=== PATIENT | male | born 1935 | race Caucasian/White ===

== ENCOUNTER 2018-09-21 15:03 | Emergency (ER) | payer MEDICARE ==
--- NOTE | 2018-09-21 16:47 | ED Physician Documentation ---
PD HPI FOCAL NEURO - Stated complaint Stated Complaint: SOA/DISORIENTED - Chief complaint Chief Complaint: Neuro - History obtained from History obtained from: Patient - History of Present Illness Timing - onset: Other (Starting yesterday morning generalized weakness with difficulty ambulating. Feels like he needs support and can't walk straight. Assoc with cough productive. Mild dyspnea.) Review of Systems Ten Systems: 10 systems reviewed and negative Constitutional: denies: Fever, Chills Cardiac: denies: Chest pain / pressure, Palpitations Respiratory: reports: Dyspnea (chronic) GI: denies: Abdominal Pain, Nausea, Vomiting PD PAST MEDICAL HISTORY - Past Medical History Cardiovascular: Hypertension, High cholesterol, Coronary artery disease (stents) Endocrine/Autoimmune: Type 2 diabetes GI: GERD - Past Surgical History Past Surgical History: No - Present Medications Home Medications: Ambulatory Orders Medication Instructions Recorded Confirmed Allopurinol [Zyloprim] 300 mg PO DAILY 11/07/13 11/07/13 Atenolol [Tenormin] 50 mg PO DAILY 11/07/13 11/07/13 Clopidogrel [Plavix] 75 mg PO DAILY 11/07/13 11/07/13 Doxazosin Mesylate [Cardura] 8 mg PO DAILY 11/07/13 11/07/13 Finasteride [Proscar] 5 mg PO DAILY 11/07/13 11/07/13 Insulin NPH Human Isophane 24 units SQ QPM 11/07/13 11/07/13 [Humulin N] Isosorbide Mononitrate ER [Imdur] 30 mg PO DAILY 11/07/13 11/07/13 Pantoprazole Sodium [Protonix] 40 mg PO BID 11/07/13 11/07/13 Ranitidine HCl [Zantac] 150 mg PO BID 11/07/13 11/07/13 Simvastatin [Zocor] 80 mg PO QPM 11/07/13 11/07/13 glipiZIDE [Glucotrol] 15 mg PO 11/07/13 11/08/13 hydroCHLOROthiazide [Hydrodiuril] 25 mg PO DAILY 11/07/13 11/07/13 Albuterol Sulfate [Proair Hfa] 2 inh INH QID PRN 11/08/13 11/08/13 Aspirin Chewable [St Lino 81 mg PO DAILY 11/08/13 11/08/13 Aspirin] Ciprofloxacin HCl [Cipro] 500 mg PO BID #14 tablet 11/08/13 Lisinopril [Zestril] 60 mg PO DAILY 11/08/13 11/08/13 Mometasone 220 Mcg [Asmanex 220 2 inh INH QPM 11/08/13 11/08/13 Mcg] Azithromycin 1 tab PO DAILY #4 tablet 09/21/18 - Allergies Allergies/Adverse Reactions: Allergies Allergy/AdvReac Type Severity Reaction Status Date / Time Penicillins Allergy Rash Verified 09/21/18 15:09 - Social History Does the pt smoke?: No Does the pt drink ETOH?: No PD ED PE NORMAL - Vitals Vital signs reviewed: Yes - General General: Alert and oriented X 3, No acute distress - HEENT HEENT: PERRL, EOMI - Neck Neck: Supple, no meningeal sign, No bony TTP - Cardiac Cardiac: RRR, No murmur - Respiratory Respiratory: No respiratory distress, Other (LLL rhonchi) - Abdomen Abdomen: Soft, Non tender - Back Back: No CVA TTP, No spinal TTP - Derm Derm: Normal color, Warm and dry - Extremities Extremities: No edema, No calf tenderness / cord - Neuro Neuro: Alert and oriented X 3, No motor deficit, No sensory deficit, Other (NL FINGER/NOSE BILAT) Eye Opening: Spontaneous Motor: Obeys Commands Verbal: Oriented GCS Score: 15 - Psych Psych: Normal mood, Normal affect Results - Vitals Vitals: Vital Signs - 24 hr 09/21/18 15:07 Temperature 36.5 C Heart Rate 87 Respiratory 21 Rate Blood Pressure 139/78 H O2 Saturation 97 Oxygen O2 Source Room air - Labs Labs: Laboratory Tests 09/21/18 09/21/18 09/21/18 17:02 17:02 17:02 WBC 6.7 RBC 4.39 L Hgb 13.7 L Hct 41.2 L MCV 94.0 MCH 31.2 H MCHC 33.2 RDW 15.5 H Plt Count 158 MPV 8.6 Neut # (Auto) 4.6 Lymph # (Auto) 1.2 L [place] # (Auto) 0.7 Eos # (Auto) 0.1 Baso # (Auto) 0.1 Absolute Nucleated RBC 0.00 Nucleated RBC % 0.0 Sodium 139 Potassium 3.5 Chloride 104 Carbon Dioxide 22 Anion Gap 13.0 BUN 24 H Creatinine 1.1 Estimated GFR (MDRD) 64 L Glucose 168 H Calcium 8.9 Total Bilirubin 0.8 AST 28 ALT 33 Alkaline Phosphatase 53 Troponin I < 0.04 Total Protein 7.0 Albumin 3.9 Globulin 3.1 Albumin/Globulin Ratio 1.3 Lipase 39 - Rads (name of study) 2v chest Radiology: EMP read contemporaneously (Shay JOHN) PD MEDICAL DECISION MAKING - ED course ED course: 82-year-old gentleman who has been feeling increasingly weak for the last few days with pulmonary complaints and found to have a small right lower lobe pneumonia. Otherwise looks well on labs and is treated with Zithromax and IV fluids. Departure - Departure Disposition: 01 Home, Self Care Clinical Impression: Pneumonia Qualifiers: Pneumonia type: due to unspecified organism Laterality: right Lung location: lower lobe of lung Qualified Code(s): J18.1 - Lobar pneumonia, unspecified organism Condition: Good Record reviewed to determine appropriate education?: Yes Instructions: Pneumonia Dc Prescriptions: Azithromycin 1 tab PO DAILY #4 tablet Comments: Call your doctor to arrange a follow-up appointment, make the next available appointment. In the interim, return anytime if worse or if new symptoms develop.
[2018-09-21] MEDS ORDERED: SODIUM CHLORIDE 0.9% 1,000 ML IV ONE (16:54)
[2018-09-21 17:10] LABS: BASOPHILS # (AUTO) 0.1 10^3/uL (0.0-0.1); BASOPHILS % (AUTO) 1.2 %; EOSINOPHILS # (AUTO) 0.1 10^3/uL (0.0-0.7); EOSINOPHILS % (AUTO) 1.7 %; HGB - HEMOGLOBIN 13.7 g/dL (14.0-18.0); LYMPHOCYTES # (AUTO) 1.2 10^3/uL (1.5-3.5); LYMPHOCYTES % (AUTO) 17.7 %; MEAN CORPUSCULAR HEMOGLOBIN 31.2 pg (27.0-31.0); MEAN CORPUSCULAR HGB CONC 33.2 g/dL (32.0-36.0); MEAN PLATELET VOLUME 8.6 fL (7.4-11.4); MONOCYTES # (AUTO) 0.7 10^3/uL (0.0-1.0); MONOCYTES % (AUTO) 10.2 %; NEUTROPHILS # (AUTO) 4.6 10^3/uL (1.5-6.6); NEUTROPHILS % (AUTO) 69.2 %; PLT - PLATELET COUNT 158 10^3/uL (130-450); RED BLOOD COUNT 4.39 10^6/uL (4.70-6.10); RED CELL DISTRIBUTION WIDTH 15.5 % (12.0-15.0); WHITE BLOOD COUNT 6.7 x10^3/uL (4.8-10.8)
[2018-09-21 17:24] LABS: ALBUMIN 3.9 g/dL (3.2-5.5); ALBUMIN/GLOBULIN RATIO 1.3 (1.0-2.2); BILIRUBIN,TOTAL 0.8 mg/dL (0.2-1.0); CALCIUM 8.9 mg/dL (8.5-10.3); CREATININE 1.1 mg/dL (0.6-1.2)
--- NOTE | 2018-09-21 17:40 | XRAY Report ---
Reason: cough Procedure Date: 09/21/2018 Accession Number: [id number] / [id number] Procedure: XR - Chest 2 View X-Ray CPT Code: 25953 FULL RESULT: EXAM: CHEST RADIOGRAPHY EXAM DATE: 09/21/2018 05:15 PM. CLINICAL HISTORY: Cough. COMPARISON: None. TECHNIQUE: 2 views. FINDINGS: Lungs/Pleura: Streaky subtle opacities of the right lung base. There is no confluent lung consolidation. No pleural effusion or pneumothorax. Mediastinum: Heart and mediastinal contours are unremarkable. Other: None. IMPRESSION: Streaky right basilar opacities suspicious for acute airspace disease. RADIA
[2018-09-21] MEDS ORDERED: AZITHROMYCIN 250 MG TABLET PO STA (17:57)
[2018-09-21 18:14] VITALS: BP 137/77
== END 2018-09-21 18:31 | disposition home or self-care (01) ==
LOC: ED 15:03
DX: J18.1 Lobar pneumonia, unspecified organism (principal); I10 Essential (primary) hypertension; I25.10 Atherosclerotic heart disease of native coronary artery without angina pectoris; E11.9 Type 2 diabetes mellitus without complications; Z79.4 Long term (current) use of insulin; Z95.5 Presence of coronary angioplasty implant and graft
CPT/HCPCS: 36415; 71046; 80053; 83690; 84484; 85025; 99283; A9270

== ENCOUNTER 2020-05-12 13:21 | Emergency (ER) | payer MEDICARE ==
--- NOTE | 2020-05-12 13:46 | ED Physician Documentation ---
PD HPI MALE - Stated complaint Stated Complaint: LT ANKLE WOUND - History obtained from History obtained from: Patient - Additional information Additional information: This is a 85-year-old gentleman history of remote TURP who has a wound that he first noticed on his ankle on April 21. He was seen at [facility] 3 days ago. It does not sound like a culture was done but he was put on Keflex, he has been on day 3. He also had what he describes as an x-ray without evidence of osteomyelitis. Despite being on the Keflex the wound is getting worse and draining more. He also notes since yesterday he has had gross hematuria with occasional clots. There is no associated new back pain but he does have some chronic back pain. Review of Systems Ten Systems: 10 systems reviewed and negative Constitutional: denies: Fever, Chills GI: denies: Abdominal Pain, Nausea, Vomiting, Diarrhea : reports: Hematuria. denies: Dysuria PD PAST MEDICAL HISTORY - Past Medical History Cardiovascular: Hypertension, High cholesterol, Coronary artery disease Endocrine/Autoimmune: Type 2 diabetes GI: GERD - Past Surgical History Past Surgical History: No - Present Medications Home Medications: Ambulatory Orders Medication Instructions Recorded Confirmed Allopurinol [Zyloprim] 300 mg PO DAILY 11/07/13 11/07/13 Clopidogrel [Plavix] 75 mg PO DAILY 11/07/13 11/07/13 Doxazosin Mesylate [Cardura] 8 mg PO DAILY 11/07/13 11/07/13 Finasteride [Proscar] 5 mg PO DAILY 11/07/13 11/07/13 Insulin NPH Human Isophane 24 units SQ QPM 11/07/13 11/07/13 [Humulin N] Pantoprazole Sodium [Protonix] 40 mg PO BID 11/07/13 11/07/13 Simvastatin [Zocor] 80 mg PO QPM 11/07/13 11/07/13 glipiZIDE [Glucotrol] 15 mg PO 11/07/13 11/08/13 hydroCHLOROthiazide [Hydrodiuril] 25 mg PO DAILY 11/07/13 11/07/13 Aspirin Chewable [St Lino 81 mg PO DAILY 11/08/13 11/08/13 Aspirin] Lisinopril [Zestril] 60 mg PO DAILY 11/08/13 11/08/13 Empagliflozin [Jardiance] 25 mg PO 05/12/20 Famotidine [Acid-Pep] 05/12/20 05/12/20 Metoprolol Tartrate [Lopressor] 05/12/20 Oxybutynin [Ditropan] 05/12/20 05/12/20 - Allergies Allergies/Adverse Reactions: Allergies Allergy/AdvReac Type Severity Reaction Status Date / Time Penicillins Allergy Rash Verified 09/21/18 15:09 - Social History Does the pt smoke?: No Smoking Status: Never smoker Does the pt drink ETOH?: No PD ED PE NORMAL - Vitals Vital signs reviewed: Yes - General General: Alert and oriented X 3, No acute distress - HEENT HEENT: PERRL, EOMI - Neck Neck: Supple, no meningeal sign, No bony TTP - Cardiac Cardiac: RRR, No murmur - Respiratory Respiratory: No respiratory distress, Clear bilaterally - Abdomen Abdomen: Soft, Non tender - Back Back: No CVA TTP, No spinal TTP - Derm Derm: Normal color, Warm and dry - Extremities Extremities: Other (Is a deep ulcer on the medial surface of the left foot at the level of the first MTP that is foul-smelling with surrounding cellulitis.) - Neuro Neuro: Alert and oriented X 3, Normal speech Results - Vitals Vitals: Vital Signs - 24 hr 05/12/20 05/12/20 05/12/20 13:37 15:00 16:20 Temperature 36.6 C 36.6 C Heart Rate 67 70 57 L Respiratory 20 16 18 Rate Blood Pressure 129/75 118/58 L 109/62 O2 Saturation 99 99 99 05/12/20 17:05 Temperature Heart Rate 70 Respiratory 16 Rate Blood Pressure 114/66 O2 Saturation 100 Oxygen O2 Source Room air - Labs Labs: Microbiology 05/12/20 14:00 Wound Culture - Preliminary Toe - Left Big Laboratory Tests 05/12/20 05/12/20 05/12/20 14:07 14:07 14:07 WBC 9.2 RBC 4.40 L Hgb 14.0 Hct 42.0 MCV 95.5 H MCH 31.8 H MCHC 33.3 RDW 14.9 Plt Count 189 MPV 10.3 Neut # (Auto) 6.4 Lymph # (Auto) 1.7 [place] # (Auto) 0.6 Eos # (Auto) 0.3 Baso # (Auto) 0.1 Absolute Nucleated RBC 0.00 Nucleated RBC % 0.0 ESR 37 H Sodium 139 Potassium 3.7 Chloride 104 Carbon Dioxide 20 L Anion Gap 15.0 H BUN 31 H Creatinine 1.6 H Estimated GFR (MDRD) 42 L Glucose 224 H Lactic Acid Calcium 8.8 C-Reactive Protein < 1.0 Urine Color Urine Clarity Urine pH Ur Specific [place] Urine Protein Urine Glucose (UA) Urine Ketones Urine Occult Blood Urine Nitrite Urine Bilirubin Urine Urobilinogen Ur Leukocyte Esterase Urine RBC Urine WBC Ur Squamous Epith Cells Amorphous Sediment Urine Bacteria Ur Microscopic Review Urine Culture Comments Nasal Adenovirus (PCR) Nasal B. parapertussis DNA (PCR) Nasal Coronavir 229E PCR Nasal Coronavir HKU1 PCR Nasal Coronavir NL63 PCR Nasal Coronavir OC43 PCR Nasal Enterovir/Rhinovir PCR Nasal Influenza B PCR Nasal Influenza A PCR Nasal Parainfluen 1 PCR Nasal Parainfluen 2 PCR Nasal Parainfluen 3 PCR Nasal Parainfluen 4 PCR Nasal RSV (PCR) Nasal B.pertussis DNA PCR Nasal C.pneumoniae (PCR) Julito Human Metapneumo PCR Nasal M.pneumoniae (PCR) Nasal SARS-CoV-2 (PCR) 05/12/20 05/12/20 05/12/20 14:07 15:53 16:10 WBC RBC Hgb Hct MCV MCH MCHC RDW Plt Count MPV Neut # (Auto) Lymph # (Auto) [place] # (Auto) Eos # (Auto) Baso # (Auto) Absolute Nucleated RBC Nucleated RBC % ESR Sodium Potassium Chloride Carbon Dioxide Anion Gap BUN Creatinine Estimated GFR (MDRD) Glucose Lactic Acid 2.9 H Calcium C-Reactive Protein Urine Color RED/BLOODY Urine Clarity CLOUDY Urine pH 5.0 Ur Specific [place] 1.015 Urine Protein 100 H Urine Glucose (UA) >=1000 H Urine Ketones NEGATIVE Urine Occult Blood LARGE H Urine Nitrite NEGATIVE Urine Bilirubin NEGATIVE Urine Urobilinogen 0.2 (NORMAL) Ur Leukocyte Esterase NEGATIVE Urine RBC TNTC H Urine WBC 0-3 Ur Squamous Epith Cells NONE SEEN Amorphous Sediment Few Urine Bacteria Rare Ur Microscopic Review INDICATED Urine Culture Comments NOT INDICATED Nasal Adenovirus (PCR) NOT DETECTED Nasal B. parapertussis DNA (PCR) NOT DETECTED Nasal Coronavir 229E PCR NOT DETECTED Nasal Coronavir HKU1 PCR NOT DETECTED Nasal Coronavir NL63 PCR NOT DETECTED Nasal Coronavir OC43 PCR NOT DETECTED Nasal Enterovir/Rhinovir PCR NOT DETECTED Nasal Influenza B PCR NOT DETECTED Nasal Influenza A PCR NOT DETECTED Nasal Parainfluen 1 PCR NOT DETECTED Nasal Parainfluen 2 PCR NOT DETECTED Nasal Parainfluen 3 PCR NOT DETECTED Nasal Parainfluen 4 PCR NOT DETECTED Nasal RSV (PCR) NOT DETECTED Nasal B.pertussis DNA PCR NOT DETECTED Nasal C.pneumoniae (PCR) NOT DETECTED Julito Human Metapneumo PCR NOT DETECTED Nasal M.pneumoniae (PCR) NOT DETECTED Nasal SARS-CoV-2 (PCR) NOT DETECTED PD MEDICAL DECISION MAKING - ED course ED course: 84-year-old gentleman presents with hematuria and a left foot wound that has failed outpatient treatment, diabetic foot ulcer. I do not see any indication of osteomyelitis on the x-ray. He has been on Keflex. He was on something else before that which he did not complete the treatment course of because it was interacting with something else. Given the failure to improve and worsening on antibiotics I recommended admission for IV antibiotics and the patient is amenable. Case discussed by phone with his at [phone] and she also agrees. We will call [facility] to make sure he is covered without being transferred to a first preferred facility. Given ceftazidime and vancomycin after blood and urine cultures. I spoke with the doctor at [facility], she is going to have to call around to see if there is a [facility] facility with availability. She notes that a wound culture had been done in the clinic growing Prevotella, group B strep, and anaerobic gram-positive cocci. Subsequently the [facility] physician called me back and notified me that he was excepted to [facility] under the care of Linsey Helms the hospitalist there. He is stable for transport. Covers are completed. Departure - Departure Disposition: 02 Transfer Acute Care Hosp Clinical Impression: Diabetic foot infection, Failure of outpatient treatment Condition: Serious
[2020-05-12 14:12] LABS: BASOPHILS # (AUTO) 0.1 10^3/uL (0.0-0.1); BASOPHILS % (AUTO) 0.8 %; EOSINOPHILS # (AUTO) 0.3 10^3/uL (0.0-0.7); EOSINOPHILS % (AUTO) 3.4 %; LYMPHOCYTES # (AUTO) 1.7 10^3/uL (1.5-3.5); LYMPHOCYTES % (AUTO) 18.7 %; MEAN CORPUSCULAR HEMOGLOBIN 31.8 pg (27.0-31.0); MEAN CORPUSCULAR HGB CONC 33.3 g/dL (32.0-36.0); MEAN CORPUSCULAR VOLUME 95.5 fL (80.0-94.0); MEAN PLATELET VOLUME 10.3 fL (7.4-11.4); MONOCYTES # (AUTO) 0.6 10^3/uL (0.0-1.0); MONOCYTES % (AUTO) 6.9 %; NEUTROPHILS # (AUTO) 6.4 10^3/uL (1.5-6.6); NEUTROPHILS % (AUTO) 69.9 %; PLT - PLATELET COUNT 189 10^3/uL (130-450); RED CELL DISTRIBUTION WIDTH 14.9 % (12.0-15.0); WHITE BLOOD COUNT 9.2 x10^3/uL (4.8-10.8)
[2020-05-12 14:34] LABS: BUN - BLOOD UREA NITROGEN 31 mg/dL (6-20); CALCIUM 8.8 mg/dL (8.5-10.3); CARBON DIOXIDE - CO2 20 mmol/L (21-32); CHLORIDE 104 mmol/L (101-111); CREATININE 1.6 mg/dL (0.6-1.2); GLUCOSE 224 mg/dL (70-100); SODIUM 139 mmol/L (135-145)
[2020-05-12 14:37] LABS: CRP - C-REACTIVE PROTEIN < 1.0 mg/dL (0-1.0)
[2020-05-12] MEDS ORDERED: VANCOMYCIN INJ 1.5 GM in SODIUM CHLORIDE 0.9% 500 ML IV STA (14:53)
[2020-05-12] MEDS ORDERED: cefTAZidime 2 GM in SODIUM CHLORIDE 0.9% MINIBAG 100 ML IV STA (14:53)
--- NOTE | 2020-05-12 14:59 | XRAY Report ---
PROCEDURE: Foot 3 View LT INDICATIONS: Diabetic wound near 1st MTP TECHNIQUE: 3 views of the foot were acquired. COMPARISON: None FINDINGS: Bones: No fractures or dislocations. No suspicious bony lesions. Accessory ossicles are seen, incl uding an os tibiale externum and an os peroneum. Age-appropriate degenerative changes are seen. Plantar and Achilles calcaneal spurs are seen. Soft tissues: Distal soft tissue swelling is seen. IMPRESSION: No suspicious bony abnormalities can be seen in this patient with this given history. Distal soft tissue swelling is seen. If there is strong clinical concern for developing osteomyelitis in this patient with this given hist ory, then please consider a dedicated MRI (without and with contrast) for further evaluation (assumin g that there is no contraindication). Reviewed by: Jem Brunner MD on 05/12/2020 1:58 PM [facility] Approved by: Jem Brunner MD on 05/12/2020 1:58 PM [facility] Station ID: [id number]
[2020-05-12] MEDS ORDERED: SODIUM CHLORIDE 0.9% 1,000 ML IV STA (15:23)
[2020-05-12 16:23] LABS: BILIRUBIN,URINE NEGATIVE (NEGATIVE); GLUCOSE, URINE (UA) >=1000 mg/dL (NEGATIVE); KETONES,URINE (UA) NEGATIVE (NEGATIVE); LEUKOCYTE ESTERASE, URINE NEGATIVE (NEGATIVE); NITRITE,URINE NEGATIVE (NEGATIVE); OCCULT BLOOD,URINE LARGE (NEGATIVE); PROTEIN,URINE 100 mg/dL (NEGATIVE); UROBILINOGEN,URINE 0.2 (NORMAL) E.U./dL (NORMAL)
[2020-05-12 16:31] LABS: AMORPHOUS SEDIMENT,UR Few /LPF; BACTERIA,URINE Rare /HPF (None Seen); CLARITY,URINE CLOUDY (CLEAR); RBC,URINE TNTC /HPF (0-5); SQUAMOUS EPITHELIAL CELL,UR NONE SEEN (<= Few)
[2020-05-12 16:58] LABS: C. PNEUMONIAE- RESP PCR PANEL NOT DETECTED
[2020-05-12 18:54] VITALS: BP 116/66
== END 2020-05-12 18:50 | disposition short-term general hospital (02) ==
LOC: ED 13:21
DX: E11.621 Type 2 diabetes mellitus with foot ulcer (principal); L97.529 Non-pressure chronic ulcer of other part of left foot with unspecified severity; Z79.4 Long term (current) use of insulin; L03.116 Cellulitis of left lower limb; Z20.828 Contact with and (suspected) exposure to other viral communicable diseases; R31.0 Gross hematuria; I10 Essential (primary) hypertension; I25.10 Atherosclerotic heart disease of native coronary artery without angina pectoris; Z79.02 Long term (current) use of antithrombotics/antiplatelets; Z79.82 Long term (current) use of aspirin; Z88.0 Allergy status to penicillin
CPT/HCPCS: 36415; 73630; 80048; 81001; 83605; 85025; 85651; 86140; 87040; 87070; 87077; 87181; 87205; 87631; 96365; 96366; 96368; 99284; 99285; J3370; 0202U; 81003; 87086

== ENCOUNTER 2021-10-05 13:16 | Outpatient (CLI) | payer MEDICARE | END 2021-10-05 13:17 | disposition left against medical advice (07) | LOC: EMS 13:16 | DX: E11.649 Type 2 diabetes mellitus with hypoglycemia without coma (principal); Z79.4 Long term (current) use of insulin ==

== ENCOUNTER 2022-09-18 20:38 | Emergency (ER) | payer MEDICARE ==
[2022-09-18 20:45] VITALS: BP 153/91
--- NOTE | 2022-09-18 21:09 | ED Physician Documentation ---
History of Present Illness - Stated complaint Stated Complaint: R FOOT PX - Chief complaint Chief Complaint: Trauma Ext - History obtained from History obtained from: Patient, Family () - Additonal information Additional information: 86-year-old man with history of diabetic neuropathy presents with acute on chronic right foot pain worsening today.He denies injury and states that it has been hurting him for a long time but got worse today. sensitive to touch. denies redness, swelling, difficulty walking or moving the ankle. PD PAST MEDICAL HISTORY - Past Medical History Cardiovascular: Hypertension, High cholesterol, Coronary artery disease Endocrine/Autoimmune: Type 2 diabetes GI: GERD - Past Surgical History Past Surgical History: No - Present Medications Home Medications: Ambulatory Orders Medication Instructions Recorded Confirmed Allopurinol [Zyloprim] 300 mg PO DAILY 11/07/13 11/07/13 Clopidogrel [Plavix] 75 mg PO DAILY 11/07/13 11/07/13 Doxazosin Mesylate [Cardura] 8 mg PO DAILY 11/07/13 11/07/13 Finasteride [Proscar] 5 mg PO DAILY 11/07/13 11/07/13 Insulin NPH Human Isophane 24 units SQ QPM 11/07/13 11/07/13 [Humulin N] Pantoprazole Sodium [Protonix] 40 mg PO BID 11/07/13 11/07/13 Simvastatin [Zocor] 80 mg PO QPM 11/07/13 11/07/13 glipiZIDE [Glucotrol] 15 mg PO 11/07/13 11/08/13 hydroCHLOROthiazide [Hydrodiuril] 25 mg PO DAILY 11/07/13 11/07/13 Aspirin Chewable [St Lino 81 mg PO DAILY 11/08/13 11/08/13 Aspirin] Lisinopril [Zestril] 60 mg PO DAILY 11/08/13 11/08/13 Empagliflozin [Jardiance] 25 mg PO 05/12/20 Famotidine [Acid-Pep] 05/12/20 05/12/20 Metoprolol Tartrate [Lopressor] 05/12/20 Oxybutynin [Ditropan] 05/12/20 05/12/20 - Allergies Allergies/Adverse Reactions: Allergies Allergy/AdvReac Type Severity Reaction Status Date / Time metformin Allergy Unknown Verified 09/18/22 20:45 Penicillins Allergy Rash Verified 09/18/22 20:44 - Social History Does the pt smoke?: No Smoking Status: Never smoker Does the pt drink ETOH?: No Does the pt have substance abuse?: No PD ED PE NORMAL - Vitals Vital signs reviewed: Yes - General General: Alert and oriented X 3, No acute distress - Derm Derm: Normal color, Warm and dry, No rash, Other (no erythema) - Extremities Extremities: No deformity, Normal ROM s pain, Other (R lateral midfoot hyperaesthetic to touch. 2+ DP and PT pulses. normal color, warmth) Results - Vitals Vitals: Vital Signs - 24 hr 09/18/22 09/18/22 09/18/22 20:42 20:45 21:02 Temperature 36.3 C L Heart Rate 73 Respiratory 16 19 17 Rate Blood Pressure 153/91 H O2 Saturation 98 Oxygen O2 Source Room air PD Medical Decision Making - ED course ED course: 86yM with hx diabetic neuropathy p/w acute on chronic R foot pain. His foot is atraumatic and has normal pulses, normal rom of ankle. He is however highly sensitive to light touch. This appears to be c/w his neuropathy. He has an rx for pregabalin at home that he has not taken yet due to concern about possible side effects. advised to give it a try and to f/u with pmd. alternative symptomatic care discussed including warm compresses, icy hot, massage. return precautions given. Departure - Departure Disposition: 01 Home, Self Care Clinical Impression: Diabetic neuropathy Condition: Stable Instructions: Neuropathy Peripheral Comments: You were seen in the emergency department for neuropathy. Please follow-up with your primary care provider and return to the emergency department for new or worsening symptoms or other concerns. Consider taking your prescription for pregabalin.
== END 2022-09-18 21:20 | disposition home or self-care (01) ==
LOC: ED 20:38
DX: E11.42 Type 2 diabetes mellitus with diabetic polyneuropathy (principal); Z79.4 Long term (current) use of insulin; Z79.84 Long term (current) use of oral hypoglycemic drugs
CPT/HCPCS: 99281; 99283